=== PATIENT | female | born 1965 | race Caucasian/White ===

== ENCOUNTER 2019-11-21 09:46 | Emergency (ER) | payer OTHER ==
--- NOTE | 2019-11-21 09:55 | PDOC ---
History of Present Illness - General Chief Complaint: Laceration Stated Complaint: FELL Time Seen by Provider: 11/21/19 09:55 History Source: Patient Exam Limitations: No Limitations - History of Present Illness Initial Comments: 54 y/o female presenting to [facility] complaining of bleeding laceration to her right knee. Injury sustained after [place] [address] approx[place] 45 min prior to arrival. Pt states she tripped and struck the knee on a rock or a branch. Denies striking her head or neck. Denies syncope. Was able to walk home immediately afterward without difficulty flexing or extending her knee. Showered and cleaned the wound with water before seeking medical attention. Past History - Medical History Allergies/Adverse Reactions: Allergies Allergy/AdvReac Type Severity Reaction Status Date / Time No Known Allergies Allergy Verified 11/21/19 09:53 Home Medications: Ambulatory Orders NK [No Known Home Medication] 11/21/19 Other medical history: Pt denies past medical history. - Surgical History Other Surgical History: Denies past surgical history. Review of Systems - Review of Systems Able to Perform ROS?: Yes Comments:: 10 point review of systems completed. All systems negative except as noted above. *Physical Exam - Physical Exam General Appearance: Yes: Nourished, Appropriately Dressed. No: Apparent Distress HEENT: positive: Normal Voice Neck: positive: Supple Respiratory/Chest: positive: Other (Speaking in multi-word responses without pausing for breath.). negative: Respiratory Distress Cardiovascular: positive: Regular Rate Extremity: positive: Normal Range of Motion (Able to flex and extend R knee normally with full range of motion.), Other (No obvious long bone injury to R lower extremity. Extremity is warm and well perfused. Sensation intact.) Integumentary: positive: Other (Approx. 3cm full thickness linear laceration to anterior inferior right knee.) Neurologic: positive: Fully Oriented, Alert, Normal Mood/Affect, Normal Response, Motor Strength 5/5 (R lower extremity.) Procedures - Additional Procedures Progress: PROCEDURE NOTE: Wound Closure with Sutures PROCEDURE BIODIESEL PRODUCT MANAGER: Chace Ambrose M.D., PGY3 INDICATION: Full thickness linear laceration CONSENT: Verbal consent was obtained from the patient prior to the procedure. Indications, risks, and benefits were explained at length. PROCEDURE SUMMARY: Patient was positioned appropriately. 4cc lidocaine 1 percent without epinephrine was used as a local anesthetic. 120cc sterile water was used for irrigation. Wound thoroughly irrigated and explored; no foreign bodies were found. Patient was sterile draped with wound exposed. 5 x 3-0-0 nylon sutures were placed with good approximation. Procedure tolerated without complications. Layer closure and hemostasis was achieved. Wound dressed with bacitracin and sterile gauze. Post suture instructions provided. EBL: <5cc. Post procedure care and follow up instructions provided verbally. Pt expressed understanding. Medical Decision Making - Medical Decision Making 54 y/o female presenting with laceration to right knee secondary to minor trauma. Afebrile. Triage vitals unremarkable for hypotension or tachycardia. Physical exam as described above. Area irrigated and explored through full range of motion. No obvious foreign body, ligamental or bony injury. See procedure section for wound closure method. Given Tylenol and Boostrix vaccine. Discussed after care and return precautions. Pt expressed verbal understanding with plan to discharge home with clinic follow up. Case discussed with ED Attending Dr. Mitchell Ambrose M.D., PGY3 Emergency Medicine Resident Discharge - Discharge Information Problems reviewed: Yes Clinical Impression/Diagnosis: Knee laceration Qualifiers: Encounter type: initial encounter Laterality: right Qualified Code(s): S81.011A - Laceration without foreign body, right knee, initial encounter Condition: Good Disposition: HOME - Admission No - Follow up/Referral Referrals: Jennifer Lomeli [Primary Care Provider] - - Patient Discharge Instructions Patient Printed Discharge Instructions: DI for Laceration Repair Additional Instructions: Your wound was cleaned and closed with 5 sutures. You were given a Tetanus booster. This is good for 10 years. Your wound was closed with 5 sutures today. They will need to be removed by a doctor or nurse after approximately 8-12 days. You may shower but do not submerge the area for the next 8-12 days. You can take over the counter Advil/Motrin (Ibuprofen) for pain. Start with taking 400mg every 6 hours. If the pain becomes worse then add Tylenol (Acetaminophen) between doses of Advil/Motrin (Ibuprofen). An example schedule is as follows: 12:00 pm 400mg Ibuprofen/Advil/Motrin 3:00 pm 1000mg Tylenol 6:00 pm 400mg Ibuprofen/Advil/Motrin 9:00 pm 1000mg Tylenol 12:00 am 400mg Ibuprofen/Advil/Motrin etc. You can follow up with your primary care physician or return to the ER to have the wound checked and the sutures removed. THESE WILL NOT DISSOLVE! Go to the nearest emergency department if your condition worsens, you develop signs of an infection, or you feel like you need additional emergency evaluation. Print Language: SLOVENIAN - Post Discharge Activity Work/Back to School Note: Back to Work
[2019-11-21] MEDS ORDERED: DIPHTH,PERTUSS(ACELL),TET 0.5 ML DISP.SYRIN IM ONE ×2 (10:04→10:18)
[2019-11-21] MEDS ORDERED: ACETAMINOPHEN 325 MG TABLET (FP) PO ONE (10:04)
[2019-11-21 10:10] VITALS: BP 98/66; PULSE 72; BMI 22.9
[2019-11-21] MEDS ORDERED: ACETAMINOPHEN 325 MG TABLET (FP) ONE (10:17)
--- NOTE | 2019-11-21 10:17 | PDOC ---
Attending Attestation - Resident Resident Name: Chace Ambrose - ED Attending Attestation I have performed the following: I have examined & evaluated the patient, The case was reviewed & discussed with the resident, I agree w/resident's findings & plan, Exceptions are as noted - HPI HPI: 54 yo F presents with R knee laceration after [place] [address] [employer]. Denies LOC, head injury. She went home and showered to clean the wound. She did not apply anything to it. +Mild bleeding. She is able to walk normally. - Physicial Exam PE: GENERAL: Awake, alert, and fully oriented, in no acute distress HEAD: No signs of trauma EYES: PERRLA, EOMI, sclera anicteric, conjunctiva clear ENT: Auricles normal inspection, hearing grossly normal, nares patent, oropharynx clear without exudates. Moist mucosa EXTREMITIES: R knee with ~4cm lac just inferior to the knee. Patellar function intact. Able to range the knee without difficulty. +Swelling to the anterior knee, no effusion, no bony tenderness. Remainder of extremities with normal range of motion, no edema. No clubbing or cyanosis. No cords, erythema, or tenderness NEUROLOGICAL: Cranial nerves II through XII grossly intact. Normal speech, normal gait. Motor and sensation intact SKIN: Warm, dry, normal turgor, no rashes or lesions noted. - Medical Decision Making 11/21/19 10:17 Pt with knee laceration s/p fall. Tendon function intact. No suspected bony injury based on exam. Will repair with sutures. Discharge - Discharge Information Problems reviewed: Yes Clinical Impression/Diagnosis: Knee laceration Qualifiers: Encounter type: initial encounter Laterality: right Qualified Code(s): S81.011A - Laceration without foreign body, right knee, initial encounter Condition: Stable Disposition: HOME - Follow up/Referral Referrals: Jennifer Lomeli [Primary Care Provider] - - Patient Discharge Instructions - Post Discharge Activity
== END 2019-11-21 11:15 | disposition home or self-care (01) ==
LOC: FER 09:46
PROC: 3E0234Z Introduction of Serum, Toxoid and Vaccine into Muscle, Percutaneous Approach (ICD-10-PCS; principal; 2019-11-21)
DX: S81.011A Laceration without foreign body, right knee, initial encounter (principal)
CPT/HCPCS: 90715; 99284-25